=== PATIENT | male | born 1940 | race Asian ===

== ENCOUNTER 2017-01-10 16:35 | Emergency (ER) | payer MEDICARE ==
[~2017-01-10] VITALS: Ht 172.7 cm; Wt 59.0 kg
[~2017-01-10 16:35] MED LIST: Pantoprazole Inj IVP ONE
--- NOTE | 2017-01-10 17:12 | Emergency Room Report ---
History of Present Illness General Chief Complaint: Gastrointestinal Bleed Source: Patient Present Illness HPI [id number] sent from [facility] for "more altered than usual" for 1 week History of dementia. Family states getting worse On risperdal - recent dose change Coughed up ?30cc blood at clinic No hematemesis, no rectal bleed. No history of GI bleed. Patient not speaking, not participating in HPI No family member bedside htn, vasc dementia, meningioma 3x0.9cm Spoke to [facility] - states ?family concern for increase in risperdal lately not on ASA, AC Allergies: Coded Allergies: AMOXICILLIN (Verified Allergy, Unknown, 01/10/17) Patient History Past Medical History: unable to obtain, dementia Past Surgical History: unable to obtain Pertinent Family History: unable to obtain Nursing Documentation-PMH Hx Hypertension: Yes Hx Neurological Problems: Yes - DEMTIA Hx Cerebrovascular Accident: Yes Review of Systems All Other Systems: limited - AMS? Physical Exam Vital Signs Date Time Temp Pulse Resp B/P (MAP) Pulse Ox O2 Delivery O2 Flow Rate FiO2 01/10/17 16:19 99.7 94 20 165/105 98 Room Air Sp02 EP Interpretation: reviewed, normal General Appearance: normal inspection, well appearing, no apparent distress, alert, non-toxic Head: normocephalic, atraumatic Eyes: bilateral eye PERRL, bilateral eye EOMI ENT: normal ENT inspection, no angioedema Neck: normal inspection, full range of motion, supple, no bony tend Respiratory: normal inspection, lungs clear, normal breath sounds, no respiratory distress, no retraction, no wheezing Cardiovascular #1: regular rate, rhythm, no edema Gastrointestinal: normal inspection, normal bowel sounds, non tender, soft, no guarding, no hernia Genitourinary: no CVA tenderness Musculoskeletal: normal inspection, back normal, normal range of motion, Dania' s Sign negative Neurologic: normal inspection, alert, responsive, speech normal Psychiatric: normal inspection, judgement/insight normal, mood/affect normal Skin: normal inspection, normal color, no rash Procedures Critical Care Time Critical Care Time CC time 45 minutes CC time includes review of labs, CT, CXR, ecg, d/w [facility] hospitalist, d/w radiologist at [facility] [place], review of CT Possibly includes dosing of HTN meds Includes multiple bedside reassessment Medical Decision Making Medicare Attestation I Tahir Pulido MD hereby attest that the medical record entry for date of service, 01/10/17 accurately reflects signatures/notations that I made in my capacity as MD when I treated/diagnosed the above listed Medicare beneficiary. I attest that this information is true, accurate and complete to the best of my knowledge. I understand that any falsification, omission, or concealment of material fact may subject me to administrative, civil, or criminal liability. This patient warrants hospital admission for extreme of age and has a condition that cannot be treated as outpatient. Diagnostic Impression: Primary Impression: Altered mental status Qualified Codes: R41.82 - Altered mental status, unspecified Additional Impressions: Dementia Qualified Codes: F03.90 - Unspecified dementia without behavioral disturbance Subdural hematoma UTI (urinary tract infection) Qualified Codes: N30.01 - Acute cystitis with hematuria Hypernatremia MO (acute kidney injury) ER Course UTI - Abx given HyperNa with MO - likely dehydration - 1/2NS started slowly in ED AMS - possibly d/t 9mm extra-axial hematoma on CT. No midline shift. No swelling. ? acute vs subacute - no signs of trauma on physical exam of head AMS possibly multifactorial d/t bleed and UTI [facility] patient - accepted for transfer to [facility] to Neurosurgery ICU - Accepted by Dr Gilbert from [facility] - said he would coordinate with [facility] - No one from [facility] called me back at time of signing this note Patient with airway patent, normal vitals, not lethargic Does not warrant intubation for airway protection at this time. EKG Diagnostic Results Rate: normal Rhythm: NSR Rhythm Strip Diag. Results EP Interpretation: yes Rate: 83 Rhythm: NSR, other - +PVCs Chest X-Ray Diagnostic Results Chest X-Ray Diagnostic Results : Chest X-Ray Ordered: Yes # of Views/Limited/Complete: 1 View Indication: Other - AMS EP Interpretation: Yes Interpretation: no consolidation, no effusion, no pneumothorax, no acute cardiopulmonary disease Impression: No acute disease Electronically Signed by: Dr Tahir Pulido MD Last Vital Signs Date Time Temp Pulse Resp B/P (MAP) Pulse Ox O2 Delivery O2 Flow Rate FiO2 01/10/17 16:19 99.7 94 20 165/105 98 Room Air Status: improved Disposition: ADMITTED INPATIENT Condition: Critical TAHIR PULIDO M.D. Jan 10, 2017 17:12
[2017-01-10 17:30] VITALS: BP 136/116
[2017-01-10 17:50] LABS: PROTHROMBIN TIME 10.1 SEC (9.30-11.50)
[2017-01-10 17:54] LABS: BASOPHILS % (AUTO) 0.7 % (0.0-2.0); EOSINOPHILS % (AUTO) 0.3 % (0.0-3.0); LYMPHOCYTES % (AUTO) 9.8 % (20.0-45.0); MEAN CORPUSCULAR HEMOGLOBIN 32.2 PG (27.0-31.0); MEAN CORPUSCULAR HGB CONC 33.6 G/DL (32.0-36.0); MEAN CORPUSCULAR VOLUME 96 FL (80-99); MEAN PLATELET VOLUME 6.2 FL (6.5-10.1); MONOCYTES % (AUTO) 9.1 % (1.0-10.0); NEUTROPHILS % (AUTO) 80.1 % (45.0-75.0); PLATELET COUNT 350 K/UL (150-450); RED BLOOD COUNT 4.85 M/UL (4.70-6.10); RED CELL DISTRIBUTION WIDTH 12.3 % (11.6-14.8); WHITE BLOOD COUNT 8.6 K/UL (4.8-10.8)
[2017-01-10 18:04] LABS: APPEARANCE,URINE CLEAR; KETONES,URINE 1+ (NEGATIVE); LEUKOCYTE ESTERASE ,URINE 1+ (NEGATIVE); NITRITE,URINE NEGATIVE (NEGATIVE); PH,URINE 5 (4.5-8.0); PROTEIN,URINE 3+ (NEGATIVE); UROBILINOGEN,URINE 1 MG/DL (0.0-1.0)
[2017-01-10 18:21] LABS: BACTERIA,URINE MODERATE /HPF
[2017-01-10 18:26] LABS: ICTOTEST NEGATIVE
[2017-01-10 18:30] LABS: ALANINE AMINOTRANSFERASE 35 U/L (12-78); ALBUMIN/GLOBULIN RATIO 1.1 (1.0-2.7); ANION GAP 10 mmol/L (5-15); ASPARTATE AMINO TRANSFERASE 39 U/L (15-37); CALCIUM 9.7 MG/DL (8.5-10.1); CARBON DIOXIDE 31 MMOL/L (21-32); CHLORIDE 122 MMOL/L (98-107); CREATININE 1.5 MG/DL (0.55-1.30); LIPASE 220 U/L (73-393); POTASSIUM 3.2 MMOL/L (3.5-5.1); TOTAL PROTEIN 7.7 G/DL (6.4-8.2)
[2017-01-10 18:31] LABS: SODIUM 163 MMOL/L (136-145)
[2017-01-10 18:35] VITALS: BP 121/82
[2017-01-10] MEDS ORDERED: Ketamine HCl 100mg syr IV ONE (19:15)
[2017-01-10 19:30] VITALS: BP 147/78
[2017-01-10 20:10] VITALS: BP 147/78
--- NOTE | 2017-01-11 08:59 | Diagnostic Imaging Report ---
Indication: Headache Technique: Contiguous 5 mm thick transaxial imaging of the head obtained in a Siemens Sensation [address] scanner. Soft tissue and bone windows generated. Total Dose length Product (DLP): [address] Dose Index Volume (CTDIvol): 70.38, 0.15 mGy Comparison: none Findings: There is an extra-axial hyperdense hematoma having a 7 mm thickness in the right frontal lobe. No associated mass effect or edema. No associated skull fracture identified. There is moderate prominence of the ventricles, basal cisterns, and cerebral sulci consistent with atrophy. Mild, nonspecific, white matter hypoattenuation is noted throughout the brain consistent with chronic small vessel disease. Bones and extra osseous soft tissues are unremarkable. Impression: 2.4 cm x 0.7 cm acute extra-axial (epidural versus subdural) hematoma over the right frontal lobe. No associated mass effect or edema. Moderate atrophy of the brain. Nonspecific white matter hypoattenuation probably due to chronic small vessel disease. Critical value communication. Findings were discussed via telephone with emergency room physician Dr. Espinosa by Dr. Pk Gomez at 17:47, 01/10/[address] scanner at [facility] is accredited by the [employer] and the scans are performed using dose optimization techniques as appropriate to a performed exam including Automatic Exposure control.
--- NOTE | 2017-01-11 12:36 | Diagnostic Imaging Report ---
Indication: Dyspnea Comparison: None A single view chest radiograph was obtained. Findings: Lungs are clear. Heart size is normal. No pleural effusion seen. Bones are osteopenic. In pression: No acute disease
--- NOTE | 2017-01-15 12:13 | Cardiology Report ---
APPROVED REPORT EKG Measurement Heart [id number] Normal sinus rhythm with sinus arrhythmia Nonspecific intraventricular block Cannot rule out Septal infarct, age undetermined Abnormal ECG
== END 2017-01-10 20:37 | disposition short-term general hospital (02) ==
LOC: EDBD 16:35 → EMR 17:12
DX: R41.82 Altered mental status, unspecified (principal); I10 Essential (primary) hypertension; F03.90 Unspecified dementia, unspecified severity, without behavioral disturbance, psychotic disturbance, mood disturbance, and anxiety; I62.00 Nontraumatic subdural hemorrhage, unspecified; N39.0 Urinary tract infection, site not specified; E87.0 Hyperosmolality and hypernatremia; N17.9 Acute kidney failure, unspecified; Z88.0 Allergy status to penicillin; Z86.73 Personal history of transient ischemic attack (TIA), and cerebral infarction without residual deficits
CPT/HCPCS: 36415; 70450; 71010; 80053; 80306; 81003; 83690; 84484; 85025; 85610; 85730; 86850; 86900; 86901; 87086; 93005; 96361; 96365; 96366; 96375; 99291; J1956